=== PATIENT | female | born 1980 | race Caucasian/White ===

== ENCOUNTER → 2017-03-04 | Outpatient (CLI) | payer MEDICAID ==
[~2017-03-04] MED LIST: GADOBUTROL 10 ML VIAL IVP ONE
== END ==
LOC: FIMAGING 12:49
PROVIDERS: ATTEND Psychiatry & Neurology Neurology
DX: R20.2 Paresthesia of skin (principal)
CPT/HCPCS: A9585

== ENCOUNTER 2017-12-06 08:39 | Day surgery (SDC) | payer MEDICAID ==
[2017-12-06] MEDS ORDERED: LIDOCAINE 1% 2 ML INJ ID PRN (09:14)
[2017-12-06] MEDS ORDERED: LR 1,000 ML IV ONE (09:14)
--- NOTE | 2017-12-06 09:55 | PDGENHP ---
History & Physical Chief Complaint: Diarrhea History of Present Illness: Chronic diarrhea Pertinent Past, Social, Family History: FH: esophageal cancer. SH: No Tob, No ETOH Relevant Physical Exam: NAD. NC/AT. OP clear. CTA B/L. RRR without m/r/g. GI : soft. NABS. NT/ND Cardiorespiratory Assessment: ASA II. EGD/Colonoscopy with MAC
--- NOTE | 2017-12-06 09:59 | PDANEPAE ---
ANE History of Present Illness EGD, colonoscopy ANE Past Medical History - Cardiovascular History Hx Hypertension: No Hx Arrhythmias: No Hx Chest Pain: No Hx Coronary Artery / Peripheral Vascular Disease: No Hx CHF / Valvular Disease: No Hx Palpitations: No - Pulmonary History Hx COPD: No Hx Asthma/Reactive Airway Disease: No Hx Recent Upper Respiratory Infection: No Hx Oxygen in Use at Home: No Hx Sleep Apnea: No Sleep Apnea Screening Result - Last Documented: Negative - Neurologic History Hx Cerebrovascular Accident: No Hx Seizures: No Hx Dementia: No - Endocrine History Hx Diabetes: No - Renal History Hx Renal Disorders: No - Liver History Hx Hepatic Disorders: No - Neurological & Psychiatric Hx Hx Neurological and Psychiatric Disorders: Yes Neurological / Psychiatric History Comment: H/A "daily for a few days". Short term memory loss-tru w/directions. - Cancer History Hx Cancer: No - Congenital Disorder History Hx Congenital Disorders: No - GI History Hx Gastrointestinal Disorders: Yes Gastrointestinal History Comment: loose stool-daily for "years" - Other Health History Other Health History: chronic fatigue-since early . Oct/Nov: E.Coli/ parasite-treated for. - Chronic Pain History Chronic Pain: No - Surgical History Prior Surgeries: lump excised L breast -benign ANE Review of Systems Review of systems is: negative Review of Systems: - Exercise capacity METS (RN): 5 METS ANE Patient History - Allergies Allergies/Adverse Reactions: No Known Allergies Allergy (Verified 11/26/17 15:12) - Home Medications Home medications: home medication list seen and reviewed Home Medications: NK [No Known Home Meds] 06/02/15 [Last Taken Unknown] - NPO status NPO Status: no food or drink >8 hours NPO Since - Liquids (Date): 12/05/17 NPO Since - Solids (Date): 12/05/17 - Anes Hx Anes Hx: no prior problems - Smoking Hx Smoking Status: Never smoked - Family Anes Hx Family Anes Hx: none ANE Labs/Vital Signs - Vital Signs Blood Pressure: 103/74 Heart Rate: 67 Respiratory Rate: 16 O2 Sat (%): 100 Height: 160.02 cm Weight: 54.431 kg ANE Physical Exam - Airway Neck exam: FROM Mallampati Score: Class 1 Mouth exam: normal dental/mouth exam - Pulmonary Pulmonary: no respiratory distress - Cardiovascular Cardiovascular: regular rate and rhythym - ASA Status ASA Status: II ANE Anesthesia Plan Total IV Anesthesia: Yes
--- NOTE | 2017-12-06 10:05 | POSTANESTH ---
Post Anesthetic Evaluation Cardiovascular Status: Normal, Stable, Similar to Pre-Op Cond Respiratory Status: Normal, Stable, Similar to Pre-op Cond. Level of Consciousness/Mental Status: Can Participate in Eval, Mildly Sleepy, Arousable Pain Control: Adequate, Prn Tx Ordered Nausea/Vomiting Control: Adequate, Prn Tx Ordered Complications Possibly Related to Anesthesia: None Noted
[2017-12-06] MEDS ORDERED: LIDOCAINE 2% 100 MG/5 ML SYR ONE (10:06)
[2017-12-06] MEDS ORDERED: PROPOFOL/EMULSION 500 MG/50 ML BOTTLE IV ONE (10:06)
--- NOTE | 2017-12-06 10:17 | GIREPORT ---
[facility] Surgical Services - Endoscopy Department Patient Name: Tracy Meyers Procedure Date: 12/06/2017 9:59 AM Patient Type: Outpatient Attending MD/ ER Physician: Diego Olivo MD Procedure: Upper GI endoscopy Indications: Epigastric abdominal pain, Abdominal bloating, Diarrhea Providers: Diego Olivo MD Medicines: Propofol per Anesthesia Complications: No immediate complications. Description of Procedure: After obtaining informed consent, the endoscope was passed under direct vision. Throughout the procedure, the patient's blood pressure, pulse, and oxygen saturations were monitored continuously. The Endoscope was intro duced through the mouth, and advanced to the second part of duodenum. The [facility] er GI endoscopy was accomplished without difficulty. The patient tolerated th e procedure well. Findings: The esophagus was normal. The stomach was normal. The duodenal bulb, first portion of the duodenum and second portion of the duodenum were normal. Biopsies for histology were taken with a cold for ceps for evaluation of celiac disease. Estimated Blood Loss: Estimated blood loss: none. Post Op Diagnosis: - Normal esophagus. - Normal stomach. - Normal duodenal bulb, first portion of the duodenum and second portio n of the duodenum. Biopsied. - Normal exam. No endoscopic source for abdominal pain or diarrhea. Recommendation: - Await pathology results. - Continue present medications. - Perform a colonoscopy today. - Return to GI office as previously scheduled. - Thank you for allowing me to be involved in the care of your patient. Attending Participation: I personally performed the entire procedure without the assistance of a fellow, resident or surg medical center enterprisel operations manager assistant. Diego Olivo MD Diego Olivo MD 12/06/2017 10:17:06 AM This report has been signed electronicallyDavid MD Pallavi Number of Addenda: 0 Note Initiated On: 12/06/2017 9:59 AM [email or web address]
--- NOTE | 2017-12-06 10:49 | GIREPORT ---
[facility] Surgical Services - Endoscopy Department Patient Name: Tracy Meyers Procedure Date: 12/06/2017 9:58 AM Patient Type: Outpatient Attending MD/ ER Physician: Diego Olivo MD Procedure: Colonoscopy Indications: Chronic diarrhea Providers: Diego Olivo MD Medicines: Propofol per Anesthesia Complications: No immediate complications. Description of Procedure: After obtaining informed consent, the scope was passed under direct vis ion. Throughout the procedure, the patient's blood pressure, pulse, and oxyg en saturations were monitored continuously. The Colonoscope was introduced through the anus and advanced to the terminal ileum. The colonoscopy wa s performed without difficulty. The patient tolerated the procedure well. The quality of the bowel preparation was excellent. The terminal ileum, ileocecal valve, appendiceal orifice, and rectum were photographed. Findings: The perianal and digital rectal examinations were normal. Pertinent negatives include normal sphincter tone and no palpable rectal lesions. The area from rectum to cecum appeared normal. Biopsies for histology w ere taken with a cold forceps from the right colon and left colon for evalu ation of microscopic colitis. The terminal ileum appeared normal. Biopsies were taken with a cold for ceps for histology. Estimated Blood Loss: Estimated blood loss: none. Post Op Diagnosis: - The rectum to cecum is normal. Biopsied. - The examined portion of the ileum was normal. Biopsied. - No endoscopic cause for diarrhea seen. Recommendation: - Await pathology results. - Resume previous diet. - Continue present medications. - Patient has a contact number available for emergencies. The signs and symptoms of potential delayed complications were discussed with the pat ient. Return to normal activities tomorrow. Written discharge instructions we re provided to the patient. - Return to GI office as previously scheduled. - Repeat colonoscopy in 10 years for screening purposes. - Thank you for allowing me to be involved in the care of your patient. Attending Participation: I personally performed the entire procedure without the assistance of a fellow, resident or surg ical operator/assistant foreman. Diego Olivo MD Diego Olivo MD 12/06/2017 10:49:37 AM This report has been signed electronicallyDavid MD Pallavi Number of Addenda: 0 Note Initiated On: 12/06/2017 9:58 AM Total Procedure Duration Time 0 hours 11 minutes 2 seconds [email or web address]
[2017-12-06] MEDS ORDERED: fentaNYL 100 MCG/2 ML INJ IVP PRN (11:28)
[2017-12-06] MEDS ORDERED: ONDANSETRON 4 MG/2 ML VIAL IVP PRN (11:28)
[2017-12-06] MEDS ORDERED: oxyCODONE IR 5 MG TAB PO PRN (11:28)
[2017-12-06] MEDS ORDERED: ACETAMINOPHEN 500 MG TAB PO PRN (11:28)
[2017-12-06] MEDS ORDERED: NALOXONE HCL 0.4 MG/ML INJ IVP PRN (11:28)
[2017-12-06] MEDS ORDERED: HYDROCODONE/APAP 5/325 TAB PO PRN (11:28)
[2017-12-06] MEDS ORDERED: DEXAMETHASONE 4 MG/ML VIAL IVP PRN (11:28)
[2017-12-06 12:03] VITALS: BP 109/67
== END 2017-12-06 12:10 | disposition home or self-care (01) ==
LOC: FSGY 08:39
PROVIDERS: ATTEND Internal Medicine Gastroenterology
PROC: 0DBB8ZX Excision of Ileum, Via Natural or Artificial Opening Endoscopic, Diagnostic (ICD-10-PCS; principal; 2017-12-06 10:30)
PROC: 0DBE8ZX Excision of Large Intestine, Via Natural or Artificial Opening Endoscopic, Diagnostic (ICD-10-PCS; principal; 2017-12-06 10:30)
PROC: 0DB98ZX Excision of Duodenum, Via Natural or Artificial Opening Endoscopic, Diagnostic (ICD-10-PCS; principal; 2017-12-06 10:30)
DX: R19.7 Diarrhea, unspecified (principal); R10.13 Epigastric pain
CPT/HCPCS: J2001; J2704

== ENCOUNTER → 2017-12-11 | Outpatient (CLI) | payer MEDICAID | LOC: FCPNEURO 21:30 | PROVIDERS: ATTEND Student in an Organized Health Care Education/Training Program | DX: G47.33 Obstructive sleep apnea (adult) (pediatric) (principal) ==